=== PATIENT | male | born 1960 | race Caucasian/White ===

== ENCOUNTER 2024-11-20 09:35 | Emergency (ER) | payer MEDICARE, SELFPAY ==
--- NOTE | 2024-11-20 09:37 | CON.NEURO ---
Neuro Assessment/Plan
Assessment
Acute onset change in mental status with pupillary asymmetry and increased pupil size on the left compared with right
Most likely due to SAH, DDX brainstem lesion
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
Plan
stat CT head
stat CTA head and neck
� administer IV Tenecteplase (TNK) per protocol urgently while keeping patient's blood pressure to a goal of systolic less than 185 and diastolic less than 110 mmHg during infusion of TNK
Transfer patient to academic institution capable of performing possible basilar artery thrombectomy, urgently
� goal blood pressure over the next 24 hours would be less than 180/105 mmHg
� hold all antiplatelets, OAC meds, DOAC meds, heparinoids for next 24 hours
� start atorvastatin 80 mg at bedtime when patient is able to take PO
� goal blood glucose levels for patient would be less than 180 mg/dL
� Speech, PT, OT evaluations needed
� Physiatry consultation warranted
� DVT prophylaxis with sequential compression devices over next 24 hours, can be started on Enoxaparin subcutaneous for DVT prophylaxis beginning 24 hours after TNK provision.
� medical educational materials will be provided
Total Critical Care Time= 40 minutes.
The neurological system is affected and the action required by me to prevent further deterioration or potential was control over the item listed first in the Impressions and Recommendations section of this note.
I was present and personally examined the patient. I discussed patient care with other professional health care providers.
We will follow, as needed as the patient will be transferred out of this facility.
Consultation
Order
Date of Consultation: 11/20/24
Requesting Provider: ED Physician
Reason for Consult: Stroke Alert
Subjective/Objective
Subjective Data
Date of Service: November 20, 2024
Unknown handed
Patient presented to this hospital's emergency department by EMS after sudden change in mental status. The patient reportedly was in his usual state of health until suddenly reporting to his spouse that he had significant dizziness. He then became
unresponsive. When EMS arrived, they found the patient's spouse attempting CPR. They found that the patient had a pulse at that time and had markedly elevated blood pressure of 244/100. EMS also found the patient had a pupillary asymmetry with
the left pupil larger than the contralateral side. The patient was intubated in the field, and brought to this emergency department.
Patient is unable provide his own medical history. Professional medical records were reviewed.
Objective Data
Patient Allergies
No Known Allergies Allergy (Verified 11/02/19 07:34)
CVA Assessment
Onset of Stroke Symptoms
Onset of symptoms known: Yes
Date of onset of symptoms: 11/20/24
Time of onset of symptoms: 08:50
Time pt last seen normal is known: Yes
Date last time pt seen normal: 11/20/24
Time last time pt seen normal: 08:50
NIH Stroke Score
Level of Consciousness: 3 - Totally unresponsive
LOC Questions: 2-Neither correct
LOC Commands: 2-Performs neither correctly
Best Horizontal Gaze: 2-Total gaze palsy
Visual Neri: 0=Normal, no visual loss
Facial Palsy: 0=Normal, symmetrical
Motor - Right Arm: 4=No movement
Motor - Left Arm: 4=No movement
Motor - Right Le-No movement
Motor - Left Le-No movement
Limb Ataxia: 0-Absent
Sensation: 2-Severe loss
Best Language: 3-Mute/global aphasia
Dysarthria: UN-Intubated, other
Extinction and Inattention: 2-Total lana inattention
Total Score:: 32
Tenecteplase Contraindications
Inclusion and Exclusion criteria reviewed: Yes
PRECAUTION for NON-Tx with Thrombolytics Exclusion 3-4.5hrs: Baseline NIH Stroke Scale greater than 25
Review of Systems
-
Unable to obtain full review of systems at this time due to: Patient Intubation and Lethargy
History Source: Patient
All other systems: Reviewed and negative
Physical Exam
-
General: No Apparent Distress, Intubated and Appears Stated Age
Eyes: Round OU and [place] Conjunctivae
HEENT: Anicteric and Moist Mucous Membranes
Neck: Full Range of Motion
Respiratory: No Dyspnea
Cardiac: No JVD
GI: Non-distended
Skin: Unremarkable
Extremities: No Clubbing, No Cyanosis and No Edema
Psych: Unable to Assess
Extended Neurological Exam
Mood & Affect: Unable to Assess
Attention Span & Concentration: Unresponsive to Verbal Stimuli and Unresponsive to Physical Stimuli; Negative Awake, Alert or Interactive
Memory: Unable to Assess
Tremor: Hand Tremor Absent and Head Tremor Absent
Involuntary Movement: None
Speech: Unable to Assess
Cranial Nerve II: Left Eye: Pupillary Size Unremarkable, Unreactive and Unable to Assess Visual Neri; Negative Pupillary Reactivity Unremarkable
Cranial Nerve II: Right Eye: Pupillary Reactivity Unremarkable, Pupillary Size Unremarkable, Unable to Assess Visual Neri and Smaller than Contralateral
Cranial Nerves III, IV, : Extraocular Movement: Absent Doll's Eyes and Unable to Assess (Ptosis)
Cranial Nerve V: Facial Sensation: Unable to Assess
Cranial Nerve VII: Facial Symmetry: Normal Facial Symmetry
Cranial Nerves IX, X: Palate Movement: Unable to Assess
Cranial Nerve XI: Shoulder Shrug: Unable to Assess
Cranial Nerve XII: Tongue Protusion: Unable to Assess
Muscle Strength, Overall: Spontaneously Moves (Head by lifting chin, rarely, low amplitude; no spontaneous movements of bilateral lower extremities)
Muscle Bulk & Tone: Bulk Unremarkable and Increased Tone (Left upper extremity at times); Negative Tone Unremarkable
Pronator Drift: Unable to Assess
Deep Tendon Reflexes: Trace Throughout
Cold Sensation: Unable to Assess
Vibration Sensation: Unable to Assess
Touch Sensation: Negative Withdrawal to Pain
Coordination: Unable to Assess
Babinski Sign: Absent Bilaterally
Gait & Station: Unable to Assess
Data Reviewed
-
CT-A: Report Reviewed and Image Reviewed
CT Head: Report Reviewed and Image Reviewed
Labs: Report Reviewed
Reviewed with: Physician and Nurse
Old Records: Summarized
Medications
-
Home Medications
�Medication �Instructions �Recorded
pravastatin 20 mg tablet 40 mg PO HS 10/22/19
acetaminophen 500 mg tablet 1,000 mg (2 x 500 mg) PO Q6H 11/03/19
(Tylenol Extra Strength)
tizanidine 2 mg tablet 2 mg PO TID PRN muscle spasm/sleep 11/03/19
#20 tabs
tramadol 50 mg tablet 50 mg PO Q6H PRN moderate-severe 11/03/19
pain #35 tabs
Past History
Past History
ED Past Medical History: Hypercholesterolemia; Negative Asthma, HTN or NIDDM
ED Past Surgical History: None
Social History
Tobacco: Non-smoker
Alcohol: None
Personal:
Living: with family
Family History
Family History: Other (reviewed and non-contributory)
[2024-11-20 09:42] LABS: Glucose - Point of Care 150 mg/dl (70-99)
[2024-11-20 09:45] VITALS: BMI 33.5
[2024-11-20 09:52] LABS: % Basophils 0.5 % (0-2); % Eosinophils 0.3 % (0-6); % Immature Granulocytes 0.6 % (0-0.5); % Lymphocytes 16.2 % (20.5-51.1); % Monocytes 7.8 % (1.7-9.3); % Neutrophils 74.6 % (42.2-75.2); Absolute Basophils 0.1 10^3/uL (0-0.2); Absolute Immature Granulocytes 0.1 10^3/uL (0-0.05); Absolute Lymphocytes 2.4 10^3/uL (1.2-3.4); Absolute Monocytes 1.1 10^3/uL (0.1-0.6); Absolute Neutrophils 10.9 10^3/uL (1.4-6.5); Hemoglobin 14.9 g/dL (13.0-18.0); Mean Corp Hgb Conc. 35.5 g/dL (33.0-37.0); Mean Corpuscular Hgb 32.3 pg (27.0-31.0); Mean Corpuscular Volume 91.1 fL (80.0-94.0); Mean Platelet Volume 11.1 fL (7.4-10.4); Nucleated Red Blood Cells % 0 % (-); Platelet Count 294 10^3/uL (130-400); Red Blood Cell Count 4.61 10^6/uL (4.70-6.10); Red Cell Dist. Width 12.7 % (11.5-14.5); White Blood Cell Count 14.6 10^3/uL (4.8-10.8)
[2024-11-20 10:04] VITALS: BP 140/89
[2024-11-20 10:04] LABS: INR 0.93; PT 12.7 Sec (11.4-14.6)
[2024-11-20 10:12] LABS: ALT (SGPT) 59 U/L (0-50); AST (SGOT) 38 U/L (17-59); Albumin 3.6 g/dl (3.5-5.0); Alkaline Phosphatase 78 U/L (38-126); Blood Urea Nitrogen 22 mg/dl (9-20); Calcium 8.7 mg/dl (8.4-10.2); Carbon Dioxide 24 mmol/L (22-30); Chloride 106 mmol/L (98-107); Estimated Creatinine Clearance 65 ml/min; Glucose 153 mg/dl (70-99); Potassium 4.2 mmol/L (3.5-5.1); Sodium 137 mmol/L (135-145); Total Bilirubin 0.8 mg/dl (0.2-1.3); Total Protein 6.8 g/dl (6.3-8.2); eGFR > 60.00
--- NOTE | 2024-11-20 10:14 | ED.GENMED ---
History of Present Illness
General
Chief Complaint: Change in Mental Status
Source: ambulance crew
Time Seen by Provider: 11/20/24 09:42
History of Present Illness
History of Present Illness:
64-year-old male brought to the emergency room by ambulance. Patient was at his baseline mental status at approximately 850 when he began acting strangely. He was complaining of severe dizziness, screaming and yelling and evidently running around
the room. He then collapsed. Patient's started CPR. Medics arrived to find the patient with a pulse and agonal respirations. He was intubated in the field with 400 mg of ketamine. Patient was also given 100 mcg of fentanyl and 5 mg of
Versed. Patient arrived obtunded.
Past History
Past History
ED Past Medical History: Hypercholesterolemia; Negative Asthma, HTN or NIDDM
ED Past Surgical History: None
Social History
Tobacco: Non-smoker
Alcohol: None
Personal:
Living: with family
Family History
Family History: Other (reviewed and non-contributory)
Phy Exam
Physical Exam
Physical Exam:
General: eyes closed, not responsive, does not follow commands or respond to painful stimulus
Vitals: Normotensive
Head: Atraumatic
Eyes: Pupils unequal--- left pupil dilated and not reactive, right pupil 1 to 2 mm, neg doll's eyes (gaze fixed in mid-position with head movement)
Throat: intubated, 23 @ the lip. 7.5 ETT
Lungs: Clear and equal b/l
Heart: Regular rate, no murmurs
Abd: Soft, Nontender, No pulsatile mass
Neuro: obtunded, no facial asymmetry, minor spont movement of right leg but no intentional movement or response to pain,
Skin: Warm, dry, no rash
Extremities: pulses equal b/l, no edema
Scores
NIH Stroke Score
Level of Consciousness: 3 - Totally unresponsive
LOC Questions: 2-Neither correct
LOC Commands: 2-Performs neither correctly
Best Horizontal Gaze: 2-Total gaze palsy
Visual Neri: 0=Normal, no visual loss
Facial Palsy: 0=Normal, symmetrical
Motor - Right Arm: 2=Partial vs. gravity
Motor - Left Arm: 4=No movement
Motor - Right Le-Partial vs. gravity
Motor - Left Le-No movement
Limb Ataxia: 0-Absent
Sensation: 0-Normal
Best Language: 3-Mute/global aphasia
Dysarthria: UN-Intubated, other
Extinction and Inattention: 0-No abnormality
Total Score:: 24
Course
Orders/Labs/Results
Orders:
Orders
11/20/24 09:37
CT HEAD STROKE ALERT W/o Cont Urgent
Comment:
Reason For Exam: stroke
CT HEAD/NECK ANG STROKE ALERT Urgent
Comment:
Reason For Exam: stroke
11/20/24 09:40
Electrocardiogram (*1) Urgent
Reason for Study: Other
Other Reason for Exam: Possible Stroke
Bedside Glucose- Treatment ONCE
Cardiac Monitoring- Treatment ONCE
EKG- Treatment ONCE
IV Insert/Care/Rem.- Treatment PRN
Vital Signs As Directed
Frequency: Other
Weight As Directed
Frequency: Once
Comment: ZERO STRETCHER SCALE FOR ACCURATE WEIGHT
O2 Therapy [RESP] Urgent
Titrate/Wean O2 to maintain O2 sat greater than (%): 93
Special Instructions: MAINTAIN CONTINUOUS O2 SATS > OR = 93%
11/20/24 09:42
Alcohol Urgent
Complete Blood Count/With Diff Urgent
Comprehensive Metabolic Panel Urgent
PTT Urgent
Prothrombin Time Urgent
Troponin I Urgent
11/20/24 10:14
CR Chest Portable - 1 View Urgent
Comment:
Reason For Exam: post code, intubated
Reason Study Needs to be Portable: Patient Unstable
11/20/24 10:18
Urinalysis Reflex To Culture Urgent
Date Specimen was Collected: 11/20/24
Time Specimen was Collected: 10:14
Urine Drug Abuse Screen Urgent
Date Specimen was Collected: 11/20/24
Time Specimen was Collected: 10:14
Urine Microscopic Reflex Cult Urgent
11/20/24 10:20
Add On- LAB Urgent
Tests Added?: ETOH
11/20/24 10:28
Tenecteplase [Tnkase] 21 mg Syringe [Syringe Non-Pump] 0 ml IV NOW
Provider explained risk/benefits to patient &/or caregiver?: Other
Comment: No family available. Best therapy available.
Blood pressure: 150/84
Abnormal Lab Results
11/20/24 11/20/24 11/20/24
09:41 09:42 10:18
WBC 14.6 H 10^3/uL
(4.8-10.8)
RBC 4.61 L 10^6/uL
(4.70-6.10)
MCH 32.3 H pg
(27.0-31.0)
MPV 11.1 H fL
(7.4-10.4)
Abs Immat Gran (auto) 0.1 H 10^3/uL
(0-0.05)
Absolute Neuts (auto) 10.9 H 10^3/uL
(1.4-6.5)
Absolute Monos (auto) 1.1 H 10^3/uL
(0.1-0.6)
Immature Gran % 0.6 H %
(0-0.5)
Lymphocytes % 16.2 L %
(20.5-51.1)
APTT 20.6 L Sec
(23.4-35.0)
BUN 22 H mg/dl
(9-20)
Glucose 153 H mg/dl
(70-99)
ALT 59 H U/L
(0-50)
Urine Bacteria (Reflex) Few A
(Negative)
Urine Albumin (Reflex) 3+ A
(Neg - Trace)
POC Glucose 150 H mg/dl
(70-99)
11/20/24 09:42
11/20/24 09:42
Vital Signs
Initial and Last Documented VS:
Initial Vital Signs
Pulse Resp
79 16
11/20/24 10:01 11/20/24 10:01
Last Documented Vital Signs
Temp Pulse Resp BP Pulse Ox
96.2 F L 82 16 150/91 99
11/20/24 10:13 11/20/24 10:45 11/20/24 10:45 11/20/24 10:45 11/20/24 10:29
MDM/Problems Addressed
Differential Diagnosis Includes:
Acute hemorrhagic CVA, acute ischemic CVA, seizure with postictal state,
MDM/Problems Addressed:
Patient presents as stroke alert, unresponsive, intubated. Exam here reveals dilated left pupil without any motor response to stimulation. CT head and CTA obtained. See radiology reports. Suspicion for basilar artery thrombosis. There is no
contraindications really for TNK and so TNK was administered. Arrangements made to have the patient transferred to the [facility] where they are able to potentially perform a posterior circulation thrombectomy. Spoke to
the stroke fellow, Dr. Paige who accepted the patient in transfer. Patient will be flown. Called and left a message on the phone number we had available for patient's . I ultimately did speak to the patient's after she called the
emergency room. She agrees with transfer. I have asked her to go directly to [place] rather than drive here as likely the patient will left by the time she would get here.
*Radiology
Radiology exam reviewed: radiology read reviewed
*Pulse Oximetry
Patient hypoxic: no
*EKG
Heart Rate: 78
Rate: normal
Rhythm: sinus and PVC's
Interval: first degree heart block
QRS Pattern: normal QRS
Ischemia: non-specific ST changes
*[employer] Interpretation
Rate: normal
Interpretation: normal
Rhythm: sinus
*Critical Care Note
Total Time (30-74mins, 75-104mins- exclusive of procedures): 45 min
comment:
Critical care statement: A total of 45 minutes of critical care time was provided for this patient. This includes management of unstable vital signs, evaluation of the patient at bedside, reviewing the patient's pertinent medical records, discussion
with consultants, review of old EKGs and review of pertinent medical records. This time with separate from time utilized to perform the aforementioned documented procedures
Patient Management
Social determinants of health affecting care: Strong social support
ED Attending Note
-
Portions of this chart may have been created with voice recognition software.� Occasional wrong word or��sound alike� substitutions may have occurred due to the inherent limitations of voice recognition software.
Discharge Plan
Departure
Patient Disposition: Acute Care Hospital
Date of Disposition: 11/20/24
Time of Disposition: 10:47
Discharge Problem:
Acute cerebrovascular accident (CVA), Respiratory failure
Prescriptions:
No Action
pravastatin 20 MG tablet
40 mg PO HS
tramadol 50 MG tablet
50 mg PO Q6H PRN (Reason: moderate-severe pain) Qty: 35 0RF
Rx Instructions:
1 tab moderate pain or 2 if pain severe
dx lami
ongoing therapy
acetaminophen [Tylenol Extra Strength] 500 MG tablet
1,000 mg PO Q6H 0RF
tizanidine 2 MG tablet
2 mg PO TID PRN (Reason: muscle spasm/sleep) Qty: 20 0RF
Rx Instructions:
may take additional tab if unrelieved with 1
Referrals:
UNKNOWN - PT NOT,INTERVIEWE [Family Provider] -
Hospital Transfer
Other hospital: [facility]
I certify that the patient requires transfer: Yes
Discussed case with accepting physician: Grecia
Reason for transfer: specialties available
Interventions
Interventions:
*Risk Screen - Suicide Last Done: 11/20/24 10:06
*General Assessment Last Done: 11/20/24 10:06
*Neglect/Abuse Screening Last Done: 11/20/24 10:06
*ED COVID-19 Vaccine History Last Done: 11/20/24 10:06
*Nursing Disposition Last Done: 11/20/24 11:31
ED- Pulmonary Assessment Last Done: 11/20/24 10:29
ED- Neurological Assessment Last Done: 11/20/24 10:06
ED- Cardiac Assessment Last Done: 11/20/24 10:29
ED Swallowing Screen Last Done: 11/20/24 10:06
Discharge Date and Time
Discharge Date/Time: 11/20/24 11:00
Print Language: TANZANIAN
[2024-11-20 10:16] VITALS: BP 150/84
[2024-11-20 10:23] LABS: Troponin I < 0.012 ng/ml
[2024-11-20 10:29] LABS: Urine Albumin 3+ (Neg - Trace); Urine Bilirubin Negative (Negative); Urine Character Clear (Clear); Urine Color Yellow; Urine Glucose Negative (Negative); Urine Ketone Negative (Negative); Urine Leukocyte Negative (Negative); Urine Nitrite Negative (Negative); Urine Occult Blood Negative (Negative); Urine Urobilinogen Negative (Neg - 1+)
[2024-11-20 10:30] VITALS: BP 152/91
[2024-11-20 10:31] VITALS: BP 156/87
[2024-11-20] MEDS: TNKASE 4.2 MG IV (10:41)
[2024-11-20 10:43] LABS: Amphetamines Negative (Negative); Barbiturates Negative (Negative); Benzodiazepines Negative (Negative); Buprenorphine Negative (Negative); Cocaine Negative (Negative); Marijuana Negative (Negative); Methadone Negative (Negative); Methamphetamines Negative (Negative); Opiates Negative (Negative); Phencyclidine Negative (Negative); Tricyclic Antidepressants Negative (Negative)
[2024-11-20 10:45] VITALS: BP 150/91
[2024-11-20 11:10] LABS: Urine Bacteria Few (Negative); Urine Granular Cast 0-2 /LPF (0); Urine Hyaline Cast 0-2 /LPF (0-2); Urine Red Blood Cell 0-2 /HPF (0-2); Urine White Cell 0-2 /HPF (0-5)
[2024-11-20 11:19] LABS: APTT 20.6 Sec (23.4-35.0)
== END 2024-11-20 11:00 | disposition short-term general hospital (02) ==
LOC: EMR 09:35
PROVIDERS: EMERGENCY PHYSICIAN Emergency Medicine; OTHER PHYSICIAN Psychiatry & Neurology Neurology
DX: R55 Syncope and collapse (principal); I63.9 Cerebral infarction, unspecified; J96.00 Acute respiratory failure, unspecified whether with hypoxia or hypercapnia; I44.0 Atrioventricular block, first degree; E78.00 Pure hypercholesterolemia, unspecified
CPT/HCPCS: 99291; 96374; 70450; 70496; 70498; 71045; 80053; 80306; 81003; 81015; 82077; 82962; 84484; 85025; 85610; 85730; 93005; J3101; Q9967